=== PATIENT | female | born 1950 | race Hispanic/Latino ===

== ENCOUNTER 2019-02-01 23:14 | Emergency (ER) | payer MEDICARE ==
[~2019-02-01] VITALS: Ht 170.2 cm; Wt 67.1 kg
[2019-02-01] MEDS ORDERED: SODIUM CHLORIDE 0.9% 1000ML 1,000 ML IV STA (23:46)
[2019-02-02] MEDS ORDERED: KETOROLAC TROMETHAMINE 30 MG/ML VIAL IV ONE
[2019-02-02] MEDS ORDERED: FAMOTIDINE 20 MG/2 ML VIAL IV ONE
[2019-02-02] MEDS ORDERED: ONDANSETRON HCL INJ 2MG/ML 2ML 2 MG/ML VIAL IV ONE
[2019-02-02 00:39] LABS: BASOPHILS # (AUTO) 0.1 (0.0-0.1); BASOPHILS % 0.8 % (0.0-1.0); EOSINOPHILS # (AUTO) 0.1 (0.0-0.4); HEMATOCRIT 39.1 % (34.2-44.1); HEMOGLOBIN 12.7 g/dL (12.0-16.0); LYMPHOCYTES # (AUTO) 1.2 (1.0-3.2); LYMPHOCYTES % 20.4 % (18.0-39.1); MEAN CORPUSCULAR HEMOGLOBIN 28.6 pg (28-32); MEAN CORPUSCULAR HGB CONC 32.5 g/dL (31-35); MEAN CORPUSCULAR VOLUME 88.1 fL (81-99); MONOCYTES # (AUTO) 0.3 (0.2-0.8); MONOCYTES % 5.7 % (4.4-11.3); NEUTROPHILS # (AUTO) 4.2 (2.1-6.9); NEUTROPHILS % 70.8 % (38.7-80.0); PLATELET COUNT 204 x10e3/uL (140-360); RED BLOOD COUNT 4.44 x10e6/uL (3.6-5.1); RED CELL DISTRIBUTION WIDTH 12.9 % (11.7-14.4)
[2019-02-02 01:06] LABS: ALANINE AMINOTRANSFERASE 18 IU/L (0-55); ALBUMIN 3.7 g/dL (3.5-5.0); ALBUMIN/GLOBULIN RATIO 1.2 (0.8-2.0); ALKALINE PHOSPHATASE 103 IU/L (40-150); AMYLASE 62 U/L (25-125); ANION GAP 13.3 mmol/L (8-16); BLOOD UREA NITROGEN 22 mg/dL (7-26); BUN/CREATININE RATIO 34 (6-25); CALCIUM 9.1 mg/dL (8.4-10.2); CARBON DIOXIDE 27 mmol/L (22-29); CHLORIDE 104 mmol/L (98-107); CREATININE, SERUM 0.65 mg/dL (0.57-1.11); EST GLOMERULAR FILTRATION RATE > 60 ML/MIN (60-); GLUCOSE 93 mg/dL (74-118); LIPASE 19 U/L (8-78); POTASSIUM 4.3 mmol/L (3.5-5.1); SODIUM 140 mmol/L (136-145)
[2019-02-02] MEDS ORDERED: IOPAMIDOL 370 MG/ML 200 ML INFUS..BTL INJ ONE (01:26)
[2019-02-02] MEDS ORDERED: SODIUM CHLORIDE 0.9% 50ML 50 ML ONE (01:26)
--- NOTE | 2019-02-02 02:33 | Diagnostic Imaging Report ---
EXAM: CT Abdomen and Pelvis WITH contrast INDICATION: Mid abdominal pain for 2 months COMPARISON: None. TECHNIQUE: Abdomen and pelvis were scanned utilizing a multidetector helical scanner from the lung base to the pubic symphysis after administration of IV contrast. Coronal and sagittal reformations were obtained. Routine protocol was performed. Scan was performed when during portal venous phase. IV CONTRAST: 100 mL of Isovue 370 ORAL CONTRAST: None COMPLICATIONS: None RADIATION DOSE: Total DLP: 357 mGy*cm Estimated effective dose: (DLP x 0.015 x size factor) mSv CTDIvol has been reviewed. It is below the limits set by the Radiation Protocol Committee (RPC). Dose modulation, iterative reconstruction, and/or weight based adjustment of the mA/kV was utilized to reduce the radiation dose to as low as reasonably achievable. FINDINGS: LINES and TUBES: None. LOWER THORAX: Unremarkable HEPATOBILIARY: A 7 x 12.2 x 9.6 cm homogeneously fluid dense circumscribed cyst with single thin septation in the right hepatic lobe and a 2.8 cm cyst in the left hepatic lobe. There is intra- and extra- hepatic biliary dilation likely post cholecystectomy reservoir effect. GALLBLADDER: Removed. SPLEEN: No splenomegaly. PANCREAS: No focal masses or ductal dilatation. ADRENALS: No adrenal nodules KIDNEYS/URETERS: Kidneys enhance symmetrically. No hydronephrosis. No solid mass lesions. Small right renal inferior pole simple cyst. No stones. GI TRACT: No abnormal distention, wall thickening, or evidence of bowel obstruction. Appendix is normal. PELVIC ORGANS/BLADDER: A 5.4 x 4.3 cm solid left adnexal mass likely involving the left ovary. Atrophic uterus.. LYMPH NODES: No lymphadenopathy. VESSELS: Unremarkable. PERITONEUM / RETROPERITONEUM: Small volume of free fluid in the pelvis. No free air. BONES: There are degenerative changes in the lumbar spine. SOFT TISSUES: There is a fat containing para-umbilical hernia. IMPRESSION: 1. A 5.4 cm solid left adnexal mass likely ovarian is concerning for malignancy. Recommend gynecology referral. Also there is small volume of fluid in the pelvis along this mass but no evidence of metastasis. 2. Multiple hepatic hepatic cysts including a 12 cm right hepatic cyst are likely benign. However in the setting of a left ovarian mass, malignancy is a less likely consideration. Signed by: Navid Judge DO on 02/02/2019 2:29 AM
[2019-02-02 03:19] VITALS: BP 172/79
== END 2019-02-02 03:46 | disposition home or self-care (01) ==
LOC: ER 23:14
DX: R10.33 Periumbilical pain (principal); R11.0 Nausea; R19.7 Diarrhea, unspecified; N83.202 Unspecified ovarian cyst, left side; K29.00 Acute gastritis without bleeding
CPT/HCPCS: 36415; 74177; 80053; 82150; 83690; 85025; 99284; J1885; J2405; J7030; Q9967

== ENCOUNTER 2019-02-02 23:04 | Emergency (ER) | payer MEDICARE ==
[~2019-02-02] VITALS: Ht 170.2 cm; Wt 67.1 kg
--- OUTSIDE RECORDS SUMMARY | 2019-02-02 23:08 | XMS REPORT ---
Author [facility] Address Unknown Phone Unavailable Care Team Providers [facility] Name Role Phone Bianca LEYVA Unavailable Unavailable Problems This patient has no known problems. Allergies, Adverse Reactions, Alerts This patient has no known allergies or adverse reactions. Medications This patient has no known medications. Results Test Description Test Time Test Comments Text Results Atomic Results Result Comments CT ABDOMEN/PELVIS W 2019-02-02 02:17:00 [place] [address] Patient Name: DARLENE SEPULVEDA MR #: [id number] : 1950 Age/Sex: 68/F Req #: [id number] Adm Physician: Ordered by: MP LEYVA MD Report #: [id number] Location: ER Room/Bed: Procedure: [id number] CT/CT ABDOMEN/PELVIS W Exam Date: 02/02/19 Exam Time: 0130 REPORT STATUS: Signed EXAM: CT Abdomen and Pelvis WITH contrast INDICATION: Mid abdominal pain for 2 months COMPARISON: None. TECHNIQUE: Abdomen and pelvis were scanned utilizing a multidetector helical scanner from the lung base to the pubic symphysis after administration of IV contrast. Coronal and sagittal reformations were obtained. Routine protocol was performed. Scan was performed when during portal venous phase. IV CONTRAST: 100 mL of Isovue 370 ORAL CONTRAST: None COMPLICATIONS: None RADIATION DOSE: Total DLP: 357 mGy*cm Estimated effective dose: (DLP x 0.015 x size factor) mSv CTDIvol has bee n reviewed. It is below the limits set by the Radiation Protocol Committee (RPC). Dose modulation, iterative reconstruction, and/or weight based adjustment of the mA/kV was utilized to reduce the radiation dose to as low as reasonably achievable. FINDINGS: LINES and TUBES: None. LOWER THORAX: Unremarkable HEPATOBILIARY: A 7 x 12.2 x 9.6 cm homogeneously fluid dense circumscribed cyst with single thin septation in the right hepatic lobe and a 2.8 cm cyst in the left hepatic lobe. There is intra- and extra- hepatic biliary dilation likely post cholecystectomy reservoir effect. GALLBLADDER: Removed. SPLEEN: No splenomegaly. PANCREAS: No focal masses or ductal dilatation. ADRENALS: No adrenal nodules KIDNEYS/URETERS: Kidneys enhance symmetrically. No hydronephrosis. No solid mass lesions. Small right renal inferior pole simple cyst. No stones. GI TRACT: No abnormal distention, wall thickening, or evidence of bowel obstruction. Appendix is normal. PELVIC ORGANS/BLADDER: A 5.4 x 4.3 cm solid left adnexal mass likely involving the left ovary. Atrophic uterus.. LYMPH NODES: No lymphadenopathy. VESSELS: Unremarkable. PERITONEUM / RETROPERITONEUM: Small volume of free fluid in the pelvis. No free air. BONES: There are degenerative changes in the lumbar spine. SOFT TISSUES: There is a fat containing para-umbilical hernia. IMPRESSION: 1. A 5.4 cm solid left adnexal mass likely ovarian is concerning for malignancy. Recommend gynecology referral. Also there is small volume of fluid in the pelvis along this mass but no evidence of metastasis. 2. Multiple hepatic hepatic cysts including a 12 cm right hepatic cyst are likely benign. However in the setting of a left ovarian mass, malignancy is a less likely consideration. Signed by: Navid Judge DO on 02/02/2019 2:29 AM Dictated By: NAVID JUDGE DO 8 Transcribed By: ADA on 02/02/19228 COPY TO: MP LEYVA MD
[2019-02-02] MEDS ORDERED: MORPHINE SULFATE INJ 4 MG/ML INJ 1ML IV STA (23:34)
[2019-02-02] MEDS ORDERED: SODIUM CHLORIDE 0.9% 1000ML 1,000 ML IV STA (23:34)
[2019-02-02] MEDS ORDERED: FAMOTIDINE 20 MG/2 ML VIAL IV ONE (23:45)
[2019-02-02] MEDS ORDERED: PROMETHAZINE 12.5MG/ NACL 0.9% 12.5 MG/50 ML BAG IV ONE (23:45)
--- NOTE | 2019-02-02 23:50 | NUR ---
PT TAKEN TO ED RM #9, REPORTS "I'M NOT HAVING REALLY ANY PAIN NOW." ER MD NOTIFIED
[2019-02-03 00:27] LABS: BASOPHILS # (AUTO) 0.1 (0.0-0.1); EOSINOPHILS # (AUTO) 0.1 (0.0-0.4); EOSINOPHILS % 2.3 % (0.0-6.0); HEMOGLOBIN 12.3 g/dL (12.0-16.0); LYMPHOCYTES # (AUTO) 1.8 (1.0-3.2); LYMPHOCYTES % 34.6 % (18.0-39.1); MEAN CORPUSCULAR HEMOGLOBIN 28.6 pg (28-32); MEAN CORPUSCULAR HGB CONC 32.4 g/dL (31-35); MEAN CORPUSCULAR VOLUME 88.4 fL (81-99); MONOCYTES # (AUTO) 0.3 (0.2-0.8); MONOCYTES % 6.4 % (4.4-11.3); NEUTROPHILS # (AUTO) 2.9 (2.1-6.9); NEUTROPHILS % 55.3 % (38.7-80.0); PLATELET COUNT 194 x10e3/uL (140-360)
[2019-02-03 00:43] LABS: ALANINE AMINOTRANSFERASE 33 IU/L (0-55); ALBUMIN/GLOBULIN RATIO 1.3 (0.8-2.0); ALKALINE PHOSPHATASE 155 IU/L (40-150); AMYLASE 60 U/L (25-125); BLOOD UREA NITROGEN 24 mg/dL (7-26); BUN/CREATININE RATIO 34 (6-25); CALCIUM 9.1 mg/dL (8.4-10.2); CARBON DIOXIDE 26 mmol/L (22-29); CREATININE, SERUM 0.71 mg/dL (0.57-1.11); EST GLOMERULAR FILTRATION RATE > 60 ML/MIN (60-); GLUCOSE 109 mg/dL (74-118); LIPASE 15 U/L (8-78)
--- NOTE | 2019-02-03 01:09 | Diagnostic Imaging Report ---
EXAM: Chest and abdominal radiographic 2 views INDICATION: Abdominal pain COMPARISON: Abdominal CT 02/02/2019 FINDINGS: Normal heart size. No pleural effusion or pneumothorax. The lungs well expanded. No consolidations. Mild right apical scarring. The ribs and thoracic soft tissues are unremarkable. Normal volume of stool in the colon. No dilated loops of small bowel. No renal calculi. Contrast opacifies the bladder lumen. No radiographic evidence of an abdominal mass. There are degenerative changes in the lumbar spine. Surgical clips in the right upper quadrant. IMPRESSION: No acute radiographic thoracic or abdominal abnormality. Signed by: Navid Judge DO on 02/03/2019 1:06 AM
[2019-02-03 02:23] LABS: ANION GAP 12.6 mmol/L (8-16); CHLORIDE 103 mmol/L (98-107); POTASSIUM 3.6 mmol/L (3.5-5.1); SODIUM 138 mmol/L (136-145)
== END 2019-02-03 01:34 | disposition home or self-care (01) ==
LOC: ER 02-03 01:15
DX: R10.13 Epigastric pain (principal); K29.00 Acute gastritis without bleeding; E78.5 Hyperlipidemia, unspecified; Z87.11 Personal history of peptic ulcer disease
CPT/HCPCS: 36415; 74022; 80053; 82150; 83690; 85025; 93005; 99283

== ENCOUNTER 2019-02-08 01:31 | Emergency (ER) | payer MEDICARE ==
[~2019-02-08] VITALS: Ht 170.2 cm; Wt 67.1 kg
== END 2019-02-08 02:17 | disposition left against medical advice (07) ==
LOC: ER 01:31
DX: Z53.21 Procedure and treatment not carried out due to patient leaving prior to being seen by health care provider (principal)